=== PATIENT | female | born 1935 | race Caucasian/White ===

== ENCOUNTER 2017-05-17 07:36 | Outpatient (CLI) | payer MEDICARE ==
--- NOTE | ~2017-05-17 | HEMODYNAMI ---
PATIENT:MARTHA MOORE MEDICAL RECORD: [id number] : 31 LOCATION:[facility] ADMISSION DATE: 05/17/17 Generatedon:05/17/201710:51 Patient name: MARTHA MOORE Patient #: [id number] SSN: : Date of study: 05/17/2017 Page: Of Hemodynamic Procedure Report Patient Data Patient Demographics Procedure consent was obtained First Name: MARTHA Gender: Female Last Name: OSCAR : 1935 Middle Initial: R S Age: 81 year(s) Patient #: [id number] Race: Unknown Additional ID: [id number] Contact details [address]: [address] [place] [address] State: [place] City: [place] Zip code: [address] Past Medical History Allergies Allergen Reaction Date Comments Reported Other allergy 05/17/2017 Morphine Admission Admission Data Admission Date: 05/17/2017 Admission Time: 7:36 Admit Source: Other Height (in.): 63 BSA: 1.78 (m2) Height (cm.): 160.02 BMI: 29.29 (kg/m2) Weight (lbs.): 165.35 Weight (kg.): 75 Lab Results Lab Result Date: 05/17/2017 Lab Result Time: 8:20 Biochemistry Name Units Result Min Max BUN mg/dl 20 --(----)*- 7 18 Creatinine mg/dl 0.9 --(-*--)-- 0.6 1.3 CBC Name Units Result Min Max Hematocrit % 46 --(-*--)-- 42 54 Hemoglobin g/dl 15.3 --(-*--)-- 13.5 17.5 Procedure Procedure Types Cath Procedure Diagnostic Procedure [facility] w/Coronaries PCI Procedure Coronary Stent Initial Miscellaneous Procedures Moderate Sedation up to 30 minutes Procedure Description Procedure Date Procedure Date: 05/17/2017 Procedure Start Time: 10:22 Procedure End Time: 10:50 Procedure Staff Name Function Korey Meek MD Performing Physician Leslie WARD Scrub Zen Lozano RT Monitor Meng Jensen RN Nurse Procedure Data Cath Procedure Fluoroscopy Diagnostic fluoroscopy Total fluoroscopy Time: 6.1 time: 6.1 min min Diagnostic fluoroscopy Total fluoroscopy dose: dose: 1196 mGy 1196 mGy Contrast Material Contrast Material Type Amount (ml) Isovue 300 116 Entry Location Entry Primary Successful Side Size Upsize Upsize Entry Closure Succes sful Closure Location (Fr) 1 (Fr) 2 (Fr) Remarks Device Remarks Femoral Right 5 Fr 6 Fr Exoseal artery Short Estimated blood loss: 10 ml Diagnostic catheters Device Type Used For End Catheter Placement Cordis 5Fr Pigtail Procedure Catheter (MP) Cordis 5Fr JL 4.0 Procedure Catheter (MP) Cordis 5Fr 3DRC Catheter Procedure (MP) Procedure Complications No complications Procedure Medications Medication Administration Route Dosage Oxygen NC 2 l/min Lidocaine 2% added to field 20 Heparin Flush Bag added to field 2 bags (1000units/500ml NS) 0.9% NaCl I.V. 100 ml/hr Versed I.V. 1 mg Fentanyl I.V. 50 mcg Heparin Bolus I.V. 4000 units Integrilin (Bolus I.V. 6.8 ml 2mg/ml) Versed I.V. 1 mg Fentanyl I.V. 50 mcg Plavix P.O. 600 mg Hemodynamics Rest BSA: 1.78 (m2) HGB: 15.3 (g/dl) O2 Consumption: Estimated: 149.27 (ml/min) O2 Co nsumption indexed: Estimated:83.86 (ml/min/m) Heart Rate: 56 (bpm) Pressure Samples Time Site Value (mmHg) Purpose Heart Use Rate(bpm) 10:23 LV 88/3,13 Snapshot 63 Snapshots Pre Cath Intra NCS Post Cath Vital Signs Time Heart Resp SPO2 etCO2 NIBP (mmHg) Rhythm Pain Sedation Rate (ipm) (%) (mmHg) Status Level (bpm) 10:09:50 58 16 100 33.6 184/85(164) NSR 0 (11) 10(A) , No pain 10:14:50 54 16 100 33.6 Measuring NSR 0 (11) 10(A) , No pain 10:15:31 56 16 100 33.6 157/75(136) NSR 0 (11) 10(A) , No pain 10:19:55 56 21 100 33.6 141/69(107) NSR 0 (11) 10(A) , No pain 10:24:05 60 19 100 0 123/61(94) NSR 0 (11) 9(A) , No pain 10:28:21 66 14 99 0 134/67(109) NSR 0 (11) 9(A) , No pain 10:32:43 64 16 100 19.4 132/58(100) NSR 0 (11) 9(A) , No pain 10:37:05 66 14 100 34.3 131/61(100) NSR 0 (11) 9(A) , No pain 10:41:23 61 14 100 32.1 150/66(108) NSR 0 (11) 10(A) , No pain 10:45:49 58 28 100 32.1 152/68(116) NSR 0 (11) 10(A) , No pain 10:49:49 31.3 No Cuff NSR 0 (11) 10(A) , No pain Medications Time Medication Route Dose Verified Delivered Reason Notes Effectiveness by by 10:08:44 Oxygen NC 2 Korey Buffie used for l/min Fantasma Jensen RN procedure 10:08:55 Lidocaine 2% added 20ml Koreygilberto Nair for local to vial Fantasma Meek MD anesthetic field 10:09:14 Heparin Flush added 2 Korey Korey used for Bag to bags Fantasma Meek MD procedure (1000units/500ml field NS) 10:09:23 0.9% NaCl I.V. 100 Korey Martinezie Per physician ml/hr Fantasma Jensen RN 10:19:10 Versed I.V. 1 mg Korey Martinezie for sedation Fantasma Jensen RN 10:19:17 Fentanyl I.V. 50 Korey Martinezie for sedation mcg Fantasma Jensen RN 10:26:39 Heparin Bolus I.V. 4000 Korey Martinezie for verifi ed units Fantasma Jensen RN anticoagulation with dr meek 10:28:49 Integrilin I.V. 6.8 Korey Buffie for wasted (Bolus 2mg/ml) ml Fantasma Jensen RN antiplatelet 3.2 ml therapy of vial 10:31:50 Versed I.V. 1 mg Korey Martinezie for sedation Fantasma Jensen RN 10:31:54 Fentanyl I.V. 50 Korey Buffie for sedation mcg Fantasma Jensen RN 10:41:00 Plavix P.O. 600 Korey Fan for mg Fantasma Jensen RN antiplatelet therapy Procedure Log Time Note 9:35:45 Leslie Castillo RT(R) sent for patient. Start room use. 9:35:46 Time tracking: Regular hours 9:35:50 Plan of Care:Hemodynamics will remain stable., Cardiac rhythm will remain stable., Comfort level will be maintained., Respiratory function will remain adequate., Patient/ family verbilizes understanding of procedure., Procedure tolerated without complication., Recovers from procedure without complications.. 9:53:51 H&P Date Dictated: 05/04/2017 Within 30 days and on chart., H&P Addendum completed by physician on day of procedure. (MUST COMPLETE FOR ALL OUTPATIENTS). 9:54:07 Patient allergic to Other allergyMorphine 9:55:23 Lab Result : BUN 20 mg/dl 9:55:23 Lab Result : Hemoglobin 15.3 g/dl 9:55:23 Lab Result : Creatinine 0.9 mg/dl 9:55:23 Lab Result : Hematocrit 46 % 9:55:26 Lab results completed and on chart. 9:55:34 Patient Weight : 165.35 lbs 9:55:37 Patient Height : 63 inches 9:55:41 Admit Source: Other 9:57:53 Patient received from Pre/Post Procedure Room to CCL 1 Alert and oriented. Tansferred to table in Supine position. 9:57:54 Warm blankets applied, and syeda hugger turned on for patient comfort. 9:57:54 Correct patient and procedure confirmed by team. 9:57:56 Signed procedure consent form obtained from patient. 9:57:56 ECG and BP/O2 sat monitors applied to patient. 10:08:31 Vital chart was started 10:08:44 Oxygen 2 l/min NC was administered by Meng Jensen RN; used for procedure; 10:08:55 Lidocaine 2% 20ml vial added to field was administered by Korey Meek MD; for local anesthetic; 10:09:14 Heparin Flush Bag (1000units/500ml NS) 2 bags added to field was administered by Korey Meek MD; used for procedure; 10:09:23 0.9% NaCl 100 ml/hr I.V. was administered by Meng Jensen RN; Per physician; 10:13:59 Baseline sample Acquired. 10:14:18 Rhythm: atrial fibrillation 10:14:21 Full Disclosure recording started 10:14:21 Pre-procedure instructions explained to patient. 10:14:22 Pre-op teaching completed and patient verbalized understanding. 10:14:24 Family in waiting room. 10:14:25 Patient NPO since Midnight. 10:14:27 Is the patient allergic to Iodine/contrast media? No. 10:14:28 Is patient on blood thinner?No 10:14:29 Patient diabetic? No. 10:14:31 Previous problem with sedation/anesthesia? No ? 10:14:32 Snore? Yes 10:14:33 Sleep apnea? No 10:14:34 Deviated septum? No 10:14:34 Opens mouth fully? Yes 10:14:35 Sticks out tongue? Yes 10:14:37 Airway obstruction? No ? 10:14:39 Dentures? Yes Out 10:14:48 Pre procedure: right dorsailis pedis pulse 1+ Palpable, but thready & weak; easily obliterated 10:14:50 Patient pain scale 0/10 ?. 10:14:54 IV patent on arrival in left forearm with 0.9% NaCl at [facility]. 10:14:59 Right groin area was prepped with chlora-prep and draped in sterile fashion 10:15:00 Alarms reviewed by R. N. 10:15:01 Sharps counted by scrub and verified by R.N. 10:15:03 Use device set Femoral Dx 10:15:04 Tegaderm 4 x 4 opened to sterile field. 10:15:04 Acist Manifold opened to sterile field. 10:15:05 Acist Hand Control opened to sterile field. 10:15:06 Acist Syringe opened to sterile field. 10:15:07 Bag Decanter opened to sterile field. 10:15:07 Medline Cath Pack opened to sterile field. 10:15:08 Terumo 5Fr Tuttle Sheath opened to sterile field. 10:15:08 St Abdiaziz 260cm J .035 wire opened to sterile field. 10:15:09 Diagnostic Infinity 5Fr Multipack catheter opened to sterile field. 10:15:16 Physician arrived 10:15:17 --------ALL STOP TIME OUT------ 10:15:17 Final Timeout: patient, procedure, and site verified with staff and physician. All members of the team are in agreement. 10:15:18 Right groin site verified by team. 10:15:20 Physical assessment completed. ASA score P 2 - A patient with mild systemic disease as per Korey Meek MD. 10:15:24 Sedation plan: IV Moderate Sedation Versed, Fentanyl 10:18:05 PERCUTANEOUS ENTRY 19GA needle opened to sterile field. 10:19:10 Versed 1 mg I.V. was administered by Meng Jensen RN; for sedation; 10:19:17 Fentanyl 50 mcg I.V. was administered by Meng Jensen RN; for sedation; 10::38 Zero performed for pressure channel P1 10:22:35 Procedure started. 10:22:43 Local anesthetic to right femoral artery with Lidocaine 2% by Korey Meek MD.INITIAL ACCESS ONLY 10:22:53 A 5 Fr sheath was inserted into the Right Femoral artery 10:23:33 A Cordis 5Fr Pigtail Catheter (MP) was advanced over the wire and used for Procedure. 10:23:54 LV gram done using REYNA 10:23:56 Injector settings: Ml/sec: 10, Volume: 20, 10:24:01 EF : 50 % 10:24:06 Catheter exchanged over wire. 10:24:11 A Cordis 5Fr JL 4.0 Catheter (MP) was advanced over the wire and used for Procedure. 10:24:41 LCA angiography performed. 10:25:05 Terumo 6Fr Tuttle Sheath opened to sterile field. 10:25:05 [employer] BasixCompak Inflation Kit opened to sterile field. 10:25:47 Núñez Whisper J 300cm 0.014 guide wire opened to sterile field. 10:25:58 Catheter exchanged over wire. 10:26:03 A Cordis 5Fr 3DRC Catheter (MP) was advanced over the wire and used for Procedure. 10:26:37 RCA angiography performed. 10:26:39 Heparin Bolus 4000 units I.V. was administered by Meng Jensen RN; for anticoagulation; verified with dr meek 10:27:00 wunderloop Choice PT Extra Support J 300cm .014 gu opened to sterile field. 10:28:06 Catheter removed. 10:28:13 Sheath upsized to a 6 Fr Short. 10:28:25 Medtronic Launcher 6Fr AR 2.0 guide catheter opened to sterile field. 10:28:33 6 Fr AR 2 guide catheter was inserted over the wire 10::43 CHOICE PT wire advanced. 10:28:49 Integrilin (Bolus 2mg/ml) 6.8 ml I.V. was administered by Meng Jensen RN; for antiplatelet therapy; wasted 3.2 ml of vial 10:31:00 The [place] Sci [place] 1.5 X 15 balloon was advanced and then removed because of failure to cross lesion 10:31:02 Wire removed. 10:31:03 Guide catheter removed. 10:31:09 Cordis 6FR XBLAD 3.5 guide catheter opened to sterile field. 10:31:20 Catheter removed. 10:31:27 6 Fr XBLAD 3.5 guide catheter was inserted over the wire 10:31:50 Versed 1 mg I.V. was administered by Meng Jensen RN; for sedation; 10::54 Fentanyl 50 mcg I.V. was administered by Meng Jensen RN; for sedation; 10:32:39 WHISPER wire advanced. 10:34:13 Wire advanced across lesion. 10:34:33 Inflation number: 1 A [place] Sci [place] 1.5 X 15 balloon was prepped and advanced across the 1st Diag, then inflated to 17 MICHELLE for 0:10 (min:sec). 10:34:35 Balloon removed over the wire. 10:37:47 The Abner RX 2.25 x 15 stent was advanced then removed because device failure 10:38:04 2.25x15 STEN WAS DAMAGED 10:38:08 Stent catheter was removed intact over wire. 10:38:31 Inflation Number: 2 A Meraux OTW 2.25 x 18 stent was prepped and advanced across the 1st Diag. The stent was deployed at 13 MICHELLE for 0:10 (min:sec). 10:38:46 Stent catheter was removed intact over wire. 10:38:47 Wire removed. 10:38:48 Guide catheter removed. 10:38:53 Cordis 6Fr Exoseal opened to sterile field. 10:39:02 Sheath removed intact; hemostasis achieved with Exoseal to the Right Femoral artery. 10:41:00 Plavix 600 mg P.O. was administered by Meng Jensen RN; for antiplatelet therapy; 10:41:12 Procedure ended.(Physican Out) 10:42:37 Fluoroscopy time 06.10 minutes. 10:: Fluoroscopy dose: 1196 mGy 10:42: Flurop Dose total: 1196 10:42:44 Contrast amount:Isovue 300 116ml. 10:42:46 Sharps counted by scrub and verified by R.N. 10:42:46 Insertion/operative site no bleeding no hematoma. 10:42:49 Post-op/insertion site Right Femoral artery dressed using a 4 x 4 and Tegaderm. 10:42:55 Post right femoral artery:stable, soft, clean and dry 10:42:56 Post Procedure Pulses reassessed and unchanged 10:42:58 Post-procedure physical assessment completed. ASA score P 2 - A patient with mild systemic disease as per Korey Meek MD. 10:43:00 Post procedure rhythm: unchanged. 10:43:02 Estimated blood loss: 10 ml 10:43:03 Post procedure instruction explained to patient.Patient verbalizes understanding. 10:43:03 Patient needs reinforcement of post procedure teaching. 10:45:03 Procedure type changed to Cath procedure, Diagnostic procedure, LHC, LHC w/Coronaries, PCI procedure, Coronary Stent Initial, Miscellaneous Procedures, Moderate Sedation up to 30 minutes 10:49:55 Procedure and supply charges have been captured, reviewed, submitted and are correct. 10:49:59 Procedure Complication : No complications 10:50:04 Vital chart was stopped 10:50:04 See physician's report for complete and final results. 10:50:05 Report given to Pre/Post Procedure Room. 10:50:08 Patient transfered to Pre/Post Procedure Room with Stretcher. 10:50:10 Procedure ended. 10:50:10 Full Disclosure recording stopped 10:50:14 End room use (Document Last) Intervention Summary Intervention Notes Time ActionType Lesion and Equipment Action# Pressure Duration Attributes Used 10:31:00 Discard [place] Balloon Sci [place] 1.5 X 15 balloon 10:34:33 Inflate 1st Diag [place] 1 17 00:10 balloon Sci [place] 1.5 X 15 balloon 10:37:47 Discard Meraux RX Stent 2.25 x 15 stent 10:38:31 Place stent 1st Diag Abner OTW 2 13 00:10 2.25 x 18 stent Device Usage Item Name Manufacture Quantity Catalog Number [facility] nimal Lot# / Charge Number Stock Stock Serial# Code Tegaderm 4 x 3M 1 [id number] 968559 824368 5 4 Acist Acist 1 24120 407667 027076 101977 5 Manifold Medical Systems Inc Acist Hand Acist 1 27918 060707 665165 817434 5 Red Sky Lab Medical Systems Inc Acist Acist 1 40945 743983 407963 088641 20 Syringe Medical Systems Companion Canine Bag Decanter Microtek 1 2002S 362251 86559 683031 5 Medical Inc. Medline Cath Cardinal 1 [id number] 094465 43660 079035 5 Pack Health Terumo 5Fr Terumo 1 [id number] 916356 232067 304263 [address] St Abdiaziz 1 433107 607764 764265 280133 30 260cm J .035 wire Diagnostic Cardinal 1 CA3530 018572 75794 076611 30 Infinity 5Fr Health Multipack catheter PERCUTANEOUS [facility] 1 [id number] 279645 695259 5 ENTRY 19GA needle Cordis 5Fr Cardinal 1 449884 5 Pigtail Health Catheter (MP) Cordis 5Fr Cardinal 1 840604 5 JL 4.0 Health Catheter (MP) Terumo 6Fr Terumo 1 MPU167 387091 161969 535439 40 Tuttle Sheath Merit Merit 1 [id number] 140111 176425 303871 15 BasixCompak Medical Inflation Kit Núñez Núñez 1 [id number] 438172 773710 593108 5 Whisper J Vascular 300cm 0.014 guide wire Cordis 5Fr Cardinal 1 448409 5 3DRC Health Catheter (MP) [place] Sci [place] 1 [id number] 406332 20190117 263787 5 Choice PT Scientific Extra Support J 300cm .014 gu Medtronic Medtronic 1 [id number] 849118 88959 418865 1 Launcher 6Fr [place] 2.0 guide catheter [place] Sci [place] 1 [id number] 645372 854141 189578 1 [id number] [place] 1.5 Scientific X 15 balloon Cordis 6FR Cardinal 1 [id number] 411473 537875 511525 10 XBLAD 3.5 Health guide catheter Meraux RX 2.25 Medtronic 1 [id number] 942459 0052148 802973 5 [id number] x 15 stent Meraux OTW Medtronic 1 [id number] 564621 25124 795183 5 [id number] 2.25 x 18 stent Cordis 6Fr Cardinal 1 [id number] 528332 876334 121507 10 [facility] Health Signature Audit [place] Stage Time Signature Unsigned Intra-Procedure 05/17/2017 Zen Lozano 10:51:17 AM RT(R) Signatures Monitor : Zen Lozano RT Signature : Date : Time : [place] [place] [address]
[2017-05-17] MEDS ORDERED: ZYLOPRIM100 MG PO (08:05)
[2017-05-17] MEDS ORDERED: XANAX0.25 MG PO (08:05)
[2017-05-17] MEDS ORDERED: NORVASC2.5 MG PO (08:05)
[2017-05-17] MEDS ORDERED: FUROSEMIDE20 MG PO (08:06)
[2017-05-17] MEDS ORDERED: LEVOTHYROXINE125 MCG PO (08:06)
[2017-05-17] MEDS ORDERED: COZAAR100 MG PO (08:07)
[2017-05-17] MEDS ORDERED: MAXZIDE 75/501 TAB PO (08:07)
[2017-05-17] MEDS ORDERED: VALIUM5 MG PO (08:08)
[2017-05-17] MEDS ORDERED: K-TAB10 MEQ PO (08:08)
[2017-05-17] MEDS ORDERED: HYDROCODON-ACE1 EAC7 PO (08:09)
[2017-05-17] MEDS ORDERED: FLUTICASONE PRO16 GM NASAL (08:09)
[2017-05-17] MEDS ORDERED: VIBRAMYCIN 100100 MG PO (08:11)
[2017-05-17] MEDS ORDERED: FLAGYL500 MG PO (08:11)
[2017-05-17] MEDS ORDERED: PROTONIX40 MG PO (08:11)
[2017-05-17] MEDS ORDERED: CARAFATE1 G PO (08:12)
[2017-05-17] MEDS ORDERED: ZOFRAN4 MG PO (08:12)
[2017-05-17 08:24] VITALS: BP 158/67; BMI 29.6
[2017-05-17 08:28] LABS: BASOPHILS 0.6 % (0-2); EOSINOPHILS 3.2 % (0-7); HEMOGLOBIN 15.3 g/dL (12-16); IMMATURE GRANULOCYTES 0.3 % (0-5); LYMPHOCYTES 18.7 % (15-50); MCHC 33.3 g/dL (31.0-37.0); MCV 84.2 fL (80.0-100.0); MEAN PLATELET VOLUME 9.6 fL (7.4-10.4); MONOCYTES 7.3 % (2-11); NEUTROPHILS 69.9 % (40-80); PLATELET COUNT 222 10x3/uL (130-400); RBC 5.46 10x6/uL (4.00-5.40); WBC 6.2 10x3/uL (4.8-10.8)
[2017-05-17 08:43] LABS: ANION GAP 14.9 mmol/L (8-16); CALCIUM 9.3 mg/dL (8.5-10.1); CARBON DIOXIDE 24.8 mmol/L (21.0-32.0); CREATININE - SERUM 0.9 mg/dL (0.6-1.3); POTASSIUM - SERUM 3.7 mmol/L (3.5-5.1)
[2017-05-17] MEDS ORDERED: PLAVIX75 MG PO (11:09)
--- NOTE | 2017-05-17 11:16 | NUR ---
1100 RECEIVED PT FROM [employer]. PT IS DROWSY, C/O NAUSEA AND HAS HAD DRY HEAVING WITH NO EMESIS. DRESSING TO RIGHT GROIN IS CDI, AREA IS SOFT AND NONTENDER. PEDAL PULSES PALPABLE. IV PATENT AND INFUSING PER ORDERS. A-FIB PER MONITOR, PT DENIES ANY C/O CHEST PAIN. 1105 PT HAS RECEIVED ZOFRAN 4 MG IV FOR C/O NAUSEA. NO EMESIS.
--- NOTE | 2017-05-17 11:22 | NUR ---
1115 PT RESTING WITH EYES CLOSED. DRESSING TO RIGHT GROIN IS CDI, AREA IS SOFT AND NONTENDER. PEDAL PULSES PALPABLE. CAP REFILL IS BRISK. FAMILY AT BEDSIDE.
[2017-05-17] MEDS ORDERED: BAYER CHEWABLE81 MG PO (11:38)
--- NOTE | 2017-05-17 11:45 | NUR ---
1130 PT DENIES ANY C/O CHEST PAIN, STATES SLIGHT NAUSEA, NO EMESIS. HAS RECEIVED ZOFRAN FOR THIS. PT STATES IS IMPROVED SINCE MED. DRESSING TO RIGHT GROIN IS CDI, AREA IS SOFT AND NONTENDER. PEDAL PULSES PALPABLE, CAP REFILL IS BRISK. A-FIB PER MONITOR. FAMILY AT BEDSIDE, CALL LIGHT IN REACH.
--- NOTE | 2017-05-17 11:47 | NUR ---
1145 DRESSING RIGHT GROIN IS CDI, AREA IS SOFT AND NONTENDER. PEDAL PULSES PALPABLE. A-FIB WITH RATE OF 64. RR EVEN AND UNLABORED. BP 130/76. FAMILY AT BEDSIDE.
--- NOTE | 2017-05-17 12:23 | NUR ---
1220 PT KODY APPLE JUICE. DRESING TO RIGHT GROIN IS CDI, AREA IS SOFT AND NONTENDER. PT WITH OCCAS COUGH, INSTRUCTED HER TO HOLD PRESSURE TO CATH SITE WITH HAND WHEN COUGHING TO DECREASE CHANCE OF BLEEDING AT CATH SITE AND PT VERBALIZES UNDERSTANDING. DAUGHTER AT BEDSIDE.
--- NOTE | 2017-05-17 12:55 | NUR ---
PT REQUESTED ANOTHER APPLE JUICE AND THIS SERVED. DRESSING TO RIGHT GROIN IS CDI, AREA IS SOFT AND NONTENDER. PEDAL PULSES PALPABLE. DAUGHTER AT BEDSIDE, CALL LIGHT IN REACH.
--- NOTE | 2017-05-17 13:23 | NUR ---
RR EVEN AND UNLABORED. DRESSING TO RIGHT GROIN IS CDI, AREA IS SOFT AND NONTENDER. PULSES PALPABLE. A FIB PER MONITOR, RATE OF 61. DENIES ANY C/O CHEST PAIN. DAUGHTERS X2 AT BEDSIDE.
--- NOTE | 2017-05-17 14:15 | NUR ---
1415 HOB ELEVATED. DRESSING TO RIGHT GROIN IS CDI, AREA IS SOFT AND NONTENDER. SANDWICH SERVED. PT DENIES ANY C/O CHEST PAIN. DAUGHTER AT BEDSIDE. VSS.
--- NOTE | 2017-05-17 14:45 | NUR ---
1445 PT HAS TOLERATED SANDWICH. IV DC'D WITH CATH INTACT AND ASSISTED PT WITH DRESSING FOR DC TO HOME.
--- NOTE | 2017-05-17 15:00 | NUR ---
1500 ASSISTED PT TO THE BATHROOM AND PT VOIDED QS. DRESSING REMAINS CDI, AREA SOFT AND NONTENDER. PT WITH INCREASED NAUSEA WITH MOVEMENT. 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 PT STATES "CAR RIDES MAKE ME SICK AND WE HAVE TO GO ALL THE WAY TO [place]." DENIES ANY OTHER C/O. DAUGHTER AT BEDSIDE.
--- NOTE | 2017-05-17 15:27 | NUR ---
1515 PT STATES SHE FEELS READY FOR DC TO HOME. ASSISTED PT TO PRIVATE AUTO VIA WC BY NURSE WITH DAUGHTER DRIVING HER HOME.
--- NOTE | 2017-05-18 16:42 | OP ---
PATIENT NAME: MARTHA MOORE MEDICAL RECORD: [id number] :31 LOCATION:D.CAT ADMISSION DATE: SURGEON: JEAN HERNANDEZ MD DATE OF OPERATION: 05/17/2017 PROCEDURES: 1. PTCA stent LAD diagonal. 2. Left heart catheterization. 3. Selective coronary angiography. 4. Left ventriculogram. INDICATION: Angina and coronary artery disease. PROCEDURE IN DETAIL: After informed consent was obtained and after a detailed explanation of the risks, benefits as well as alternative therapies, the patient elected to proceed with angiogram and angioplasty. The right femoral area was prepped and draped in normal sterile fashion. The right femoral artery was cannulated via modified Seldinger technique with placement of 6-Telugu sheath. All catheters were exchanged through this sheath. FINDINGS: Left ventriculogram was performed in standard 30-degree REYNA view, reveals good cardiac wall motion throughout all segments. Overall ejection fraction estimated at 60%. SELECTIVE CORONARY ANGIOGRAPHY: 1. Left main showed no significant angiographic disease. 2. Left anterior descending has a 95% stenosis of the LAD diagonal, otherwise only moderate irregularities. 3. Left circumflex has moderate irregularities, but no flow-limiting stenosis. 4. 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 The distal vessel supplied via left to right collaterals. PTCA STENT OF THE LAD DIAGONAL: The stent used was a 2.25 x 18 mm [place]. Result was 0% residual stenosis. OVERALL IMPRESSION: Successful percutaneous transluminal coronary angioplasty stent of the left anterior descending diagonal going from 95% initial stenosis to 0% residual. TRANSINT:[id number] Voice Confirmation ID: [id number] DOCUMENT ID: [id number] JEAN HERNANDEZ MD at 1642 CC: [id number] DICTATION DATE: 05/17/17 1043 MICA MACHINE OPERATOR: 05/17/17 1215 [facility] CLI 05/17/17 [place] [id number] [place] [id number]
== END 2017-05-17 15:15 | disposition home or self-care (01) ==
LOC: D.CATH 07:36
PROVIDERS: Internal Medicine Interventional Cardiology
DX: I25.119 Atherosclerotic heart disease of native coronary artery with unspecified angina pectoris (principal); I10 Essential (primary) hypertension; E78.5 Hyperlipidemia, unspecified; I48.91 Unspecified atrial fibrillation; Z01.812 Encounter for preprocedural laboratory examination
CPT/HCPCS: 93458; C9600